=== PATIENT | female | born 1970 | race Caucasian/White ===

== ENCOUNTER 2018-07-04 12:10 | Emergency (ER) | payer MEDICAID, OTHER ==
[~2018-07-04] VITALS: Ht 157.5 cm; Wt 54.0 kg
[~2018-07-04 12:10] MED LIST: ATOR40TA70 PO; CALC-30 PO; ERGO500013 PO; FURO20TA4 PO; HYDR200T35; IRON1TAB PO; LISI40TA4; LOV30 SQ; PRED5TAB PO
[2018-07-04 13:26] LABS: CLARITY URINE CLOUDY (CLEAR); COLOR URINE YELLOW (YELLOW); KETONES URINE NEGATIVE (NEGATIVE); LEUKOCYTE ESTERASE URINE 3+ (NEGATIVE); NITRITE URINE NEGATIVE (NEGATIVE); OCCULT BLOOD URINE 2+ (NEGATIVE); PROTEIN URINE NEGATIVE (NEGATIVE); SPECIFIC GRAVITY URINE 1.004 (1.005-1.030); UROBILINOGEN URINE 0.2 E.U./dL (0.2-1.0)
[2018-07-04] MEDS ORDERED: CEFTRIAXONE SODIUM 1 G/VIAL IM ONE (14:00)
[2018-07-04] MEDS ORDERED: LIDOCAINE HCL 1% 20ML VIAL (Pyxis) INJ INFIL ONE (14:00)
[2018-07-04 14:23] LABS: BASOPHILS % 0.3 % (0.0-2.0); EOSINOPHILS % 1.5 % (0.0-5.0); HEMATOCRIT. 26.3 % (36.0-48.0); HEMOGLOBIN. 8.2 g/dL (12.0-16.0); LYMPHOCYTES % 14.2 % (20.0-50.0); MEAN CORPUSCULAR HEMOGLOBIN 19.7 pg (28.0-32.0); MEAN CORPUSCULAR VOLUME 62.7 fL (81.0-99.0); MEAN PLATELET VOLUME 10.7 fl (7.4-10.4); MONOCYTES % 9.3 % (2.0-8.0); NEUTROPHILS % 74.7 % (40.0-76.0); PLATELET 243 x1000/uL (130-400); RED BLOOD CELL COUNT 4.19 mill/uL (4.2-5.4); RED CELL DISTRIBUTION WIDTH 19.3 % (11.6-14.6)
[2018-07-04 14:31] LABS: CHLORIDE 108 mEq/L (98-107)
[2018-07-04 14:37] LABS: HCG SCREEN INDETERMINATE
[2018-07-04] MEDS ORDERED: LIDOCAINE HCL/PF 1% 10 MG/ML 5ML VIAL IJ NR (14:45)
[2018-07-04] MEDS ORDERED: LIDOCAINE HCL 1% 10 MG/ML 10ML VIAL ONE (14:51)
[2018-07-04 15:48] VITALS: BP 114/70
[2018-07-04 22:01] LABS: PLATELET ESTIMATE NORMAL
[2018-07-08] MEDS ORDERED: CLOP75TA33 MT (10:50)
[2018-07-09] MEDS ORDERED: KEPP500 MT (07:42)
== END 2018-07-04 15:49 | disposition home or self-care (01) ==
LOC: ER 12:54
DX: N30.90 Cystitis, unspecified without hematuria (principal); D50.9 Iron deficiency anemia, unspecified; I10 Essential (primary) hypertension; M32.9 Systemic lupus erythematosus, unspecified; Z86.73 Personal history of transient ischemic attack (TIA), and cerebral infarction without residual deficits; Z98.890 Other specified postprocedural states; Z79.899 Other long term (current) drug therapy
CPT/HCPCS: 36415; 80053; 81003; 83690; 84703; 85025; 87077; 87086; 87186; 96372; 99284; J0696; J3490; Z7610

== ENCOUNTER 2022-06-09 11:02 | Emergency (ER) | payer MEDICAID, OTHER ==
[~2022-06-09] VITALS: Ht 152.4 cm; Wt 64.0 kg
[~2022-06-09 11:02] MED LIST changes: +CALC-1249 PO; -CALC-30 PO; +CLOP75TA33 MT; -FURO20TA4 PO; +KEPP500 MT; +LISI40TA13; -LISI40TA4; -LOV30 SQ; -PRED5TAB PO
[2022-06-09] MEDS ORDERED: HYDRALAZINE 20MG/ML VIAL IV PRN (13:15)
[2022-06-09] MEDS ORDERED: LOSARTAN POTASSIUM 100 MG TABLET PO SCH (13:15)
[2022-06-09] MEDS ORDERED: FUROSEMIDE 40MG/4ML VIAL IVP NR (13:15)
[2022-06-09 15:24] LABS: CLARITY URINE CLEAR (CLEAR); COLOR URINE YELLOW (YELLOW); KETONES URINE NEGATIVE (NEGATIVE); LEUKOCYTE ESTERASE URINE NEGATIVE (NEGATIVE); NITRITE URINE NEGATIVE (NEGATIVE); OCCULT BLOOD URINE 2+ (NEGATIVE); PROTEIN URINE 3+ (NEGATIVE); SPECIFIC GRAVITY URINE 1.011 (1.005-1.030); UROBILINOGEN URINE 0.2 E.U./dL (0.2-1.0)
[2022-06-09 19:11] LABS: BASOPHILS % 0.4 % (0.0-2.0); EOSINOPHILS % 0.8 % (0.0-5.0); HEMATOCRIT. 35.2 % (36.0-48.0); HEMOGLOBIN. 11.3 g/dL (12.0-16.0); LYMPHOCYTES % 19.8 % (20.0-50.0); MEAN CORPUSCULAR HEMOGLOBIN 28.1 pg (28.0-32.0); MEAN CORPUSCULAR VOLUME 87.7 fL (81.0-99.0); MONOCYTES % 8.2 % (2.0-8.0); NEUTROPHILS % 70.8 % (40.0-76.0); PLATELET 167 x1000/uL (130-400); RED BLOOD CELL COUNT 4.01 mill/uL (4.2-5.4); RED CELL DISTRIBUTION WIDTH 13.3 % (11.6-14.6)
[2022-06-09 19:20] LABS: CHLORIDE 115 mEq/L (98-107)
[2022-06-09 21:22] VITALS: BP 169/73
== END 2022-06-09 21:20 | disposition home or self-care (01) ==
LOC: ER 11:02
DX: I10 Essential (primary) hypertension (principal); Z86.73 Personal history of transient ischemic attack (TIA), and cerebral infarction without residual deficits; Z86.59 Personal history of other mental and behavioral disorders
CPT/HCPCS: 36415; 71045; 80053; 81003; 83880; 84484; 85025; 93005; 96374; 99285; J0360; J1940

== ENCOUNTER 2023-08-06 15:13 | Inpatient (IN) | payer MEDICAID, OTHER ==
[~2023-08-06] VITALS: Ht 152.4 cm; Wt 52.6 kg
[2023-08-06] MEDS ORDERED: IBUPROFEN 600MG TABLET PO STA (17:37)
[2023-08-06] MEDS ORDERED: CEFTRIAXONE 1GM PREMIX 50 ML IV ONE (17:45)
[2023-08-06] MEDS ORDERED: VANCOMYCIN 1G PREMIX 200 ML IV ONE (17:45)
[2023-08-06] MEDS ORDERED: SODIUM CHLORIDE 0.9% 1,000 ML IV ONE (17:45)
[2023-08-06 19:33] LABS: BASOPHILS % 0.1 % (0.0-2.0); EOSINOPHILS % 0.1 % (0.0-5.0); HEMATOCRIT. 25.2 % (36.0-48.0); HEMOGLOBIN. 7.5 g/dL (12.0-16.0); LYMPHOCYTES % 10.1 % (20.0-50.0); MEAN CORPUSCULAR HEMOGLOBIN 27.7 pg (28.0-32.0); MEAN CORPUSCULAR HGB CONC 29.7 g/dL (31.0-37.0); MEAN CORPUSCULAR VOLUME 93.3 fL (81.0-99.0); MEAN PLATELET VOLUME 8.2 fl (7.4-10.4); MONOCYTES % 6.3 % (2.0-8.0); NEUTROPHILS % 83.4 % (40.0-76.0); PLATELET 301 x1000/uL (130-400); RED CELL DISTRIBUTION WIDTH 20.4 % (11.6-14.6); WHITE BLOOD COUNT 4.9 x1000/uL (4.5-11.0)
[2023-08-06 19:44] LABS: CHLORIDE 103 mEq/L (98-107); INDEX HEMOLYSI 1 (1-3); INDEX ICTERIC 1 (1-4); INDEX LIPEMIC 1 (1-3); POTASSIUM 4.3 mEq/L (3.5-5.1); SODIUM 139 mEq/L (136-145)
[2023-08-06 19:51] LABS: ALANINE AMINOTRANSFERASE 13 IU/L (13-61); ALBUMIN 2.6 g/dL (3.4-5.0); ASPARTATE AMINOTRANSFERASE 24 IU/L (15-37); BILIRUBIN TOTAL 0.3 mg/dL (0.1-1.0); CALCIUM 8.6 mg/dL (8.5-10.1); CARBON DIOXIDE 28 mEq/L (21-32); GLUCOSE 108 mg/dL (70-105); PROTEIN TOTAL 7.1 g/dL (6.0-8.3); UREA NITROGEN BLOOD 42 mg/dL (7-21)
[2023-08-06] MEDS ORDERED: IBUPROFEN 600MG TABLET PO NR (23:00)
[2023-08-06] MEDS ORDERED: VANCOMYCIN 1G PREMIX 200 ML IV NR (23:00)
[2023-08-06] MEDS ORDERED: CEFTRIAXONE 1GM PREMIX 50 ML IV NR (23:00)
[2023-08-07 01:59] VITALS: BP 148/63; PULSE 69; RESP 18; TEMP 98.6
[2023-08-07 04:34] VITALS: BP 148/63; PULSE 19; RESP 18; TEMP 98.6
[2023-08-07] MEDS ORDERED: SEVE800T8 MT (05:09)
[2023-08-07] MEDS ORDERED: NIFE-33 MT (05:09)
[2023-08-07] MEDS ORDERED: PANT40TA51 MT (05:09)
[2023-08-07] MEDS ORDERED: CETI10TA11 PO (05:09)
[2023-08-07] MEDS ORDERED: PRED10TA23 PO (05:09)
[2023-08-07] MEDS ORDERED: ATOR10TA69 PO (05:09)
[2023-08-07] MEDS ORDERED: LEVE10006 PO (05:09)
[2023-08-07] MEDS ORDERED: AMIT10TA6 PO (05:09)
[2023-08-07] MEDS ORDERED: METO-385 PO (05:09)
[2023-08-07] MEDS ORDERED: DOXA1TAB2 MT (05:09)
[2023-08-07] MEDS ORDERED: HYDROCODONE/ACETAMINOPHEN 5/325MG TABLET PO PRN (06:30)
[2023-08-07] MEDS ORDERED: NALOXONE HCL 0.4MG/ML VIAL IV PRN (07:00)
[2023-08-07 08:00] VITALS: BP 145/52; PULSE 72; RESP 20; TEMP 98.2
[2023-08-07 12:00] VITALS: BP 139/40; PULSE 65; RESP 20; TEMP 97.6
[2023-08-07] MEDS ORDERED: FERR325T6 PO (14:57)
[2023-08-07 16:00] VITALS: BP 154/63; PULSE 69; RESP 20; TEMP 97.8
[2023-08-07] MEDS: FERROUS SULFATE 325MG TABLET PO SCH (16:58)
[2023-08-07] MEDS: NIFEDIPINE XL 30MG TAB PO SCH (17:00)
[2023-08-07] MEDS: SEVELAMER CARBONATE 800 MG TABLET PO SCH (17:29)
[2023-08-07] MEDS ORDERED: INFLUENZA VACCINE 05/PF 0.5 ML SYRINGE IM ONE (18:00)
[2023-08-07 20:00] VITALS: BP 150/62; PULSE 66; RESP 18; TEMP 96.6
[2023-08-07] MEDS ORDERED: EPOETIN ALFA 10000UNITS/ML VIAL SUBCUT SCH (21:00)
[2023-08-07] MEDS ORDERED: EPOETIN ALFA 4000UNITS/ML VIAL SUBCUT SCH (21:00)
[2023-08-07] MEDS: LEVETIRACETAM 500MG TABLET PO SCH (21:19)
[2023-08-07] MEDS: CEFTRIAXONE 1,000 MG in DEXTROSE 5% WATER 50 ML IV SCH (21:19)
[2023-08-07] MEDS: ATORVASTATIN CALCIUM 10MG TABLET PO SCH (21:20)
[2023-08-07] MEDS: DOXAZOSIN MESYLATE 2MG TABLET PO SCH (21:21)
[2023-08-07] MEDS: AMITRIPTYLINE 10MG TABLET PO SCH (21:21)
[2023-08-08] VITALS (15 sets, daily range): BP systolic 122–174; BP diastolic 46–83; PULSE 69–93; RESP 16–20; TEMP 96.9–98.6
[2023-08-08 05:48] LABS: ALBUMIN 2.2 g/dL (3.4-5.0); POTASSIUM 4.1 mEq/L (3.5-5.1)
[2023-08-08] MEDS: LEVETIRACETAM 500MG TABLET PO SCH ×2 (08:57→21:07)
[2023-08-08] MEDS: PREDNISONE 10MG TABLET PO SCH (08:57)
[2023-08-08] MEDS: FERROUS SULFATE 325MG TABLET PO SCH (08:57)
[2023-08-08] MEDS: PANTOPRAZOLE 40MG DR TABLET PO SCH (08:57)
[2023-08-08] MEDS: SEVELAMER CARBONATE 800 MG TABLET PO SCH ×3 (08:57→17:51)
[2023-08-08] MEDS: CETIRIZINE 10MG TABLET PO SCH (08:58)
[2023-08-08] MEDS ORDERED: CLOPIDOGREL 75MG TABLET PO SCH (09:00)
[2023-08-08 10:55] LABS: PREALBUMIN 24.3 mg/dL (20.0-40.0)
[2023-08-08] MEDS: NIFEDIPINE XL 30MG TAB PO SCH ×2 (13:05→17:52)
[2023-08-08] MEDS: METOPROLOL SUCCINATE 50MG ER TABLET PO SCH (13:05)
[2023-08-08] MEDS ORDERED: LIDOCAINE HCL 4% (40MG/ML) SOLN 50ML TOP NR (16:30)
[2023-08-08] MEDS ORDERED: SILVER NITRATE APPLICATOR STICK TOP NR (16:33)
[2023-08-08 19:04] LABS: HEPATITIS B CORE AB IGM NEGATIVE; HEPATITIS C VIR.AB 0.08 INDEXVAL (0.00-0.80)
[2023-08-08 19:28] LABS: HEPATITIS B SURFACE ANTIGEN NEGATIVE
[2023-08-08 19:58] LABS: HEPATITIS A AB IGM NEGATIVE (NEGATIVE)
[2023-08-08] MEDS: AMITRIPTYLINE 10MG TABLET PO SCH (21:07)
[2023-08-08] MEDS: ATORVASTATIN CALCIUM 10MG TABLET PO SCH (21:07)
[2023-08-08] MEDS: DOXAZOSIN MESYLATE 2MG TABLET PO SCH (21:08)
[2023-08-08] MEDS: CEFTRIAXONE 1,000 MG in DEXTROSE 5% WATER 50 ML IV SCH (21:09)
[2023-08-09] VITALS (11 sets, daily range): BP systolic 94–144; BP diastolic 44–65; PULSE 65–82; RESP 16–20; TEMP 97.1–99.5
[2023-08-09 04:26] LABS: HEMATOCRIT. 22.7 % (36.0-48.0); MEAN CORPUSCULAR HEMOGLOBIN 27.7 pg (28.0-32.0); MEAN CORPUSCULAR HGB CONC 30.6 g/dL (31.0-37.0); MEAN CORPUSCULAR VOLUME 90.5 fL (81.0-99.0); MEAN PLATELET VOLUME 7.7 fl (7.4-10.4); PLATELET 161 x1000/uL (130-400); RED CELL DISTRIBUTION WIDTH 20.1 % (11.6-14.6); WHITE BLOOD COUNT 3.2 x1000/uL (4.5-11.0)
[2023-08-09 04:31] LABS: POTASSIUM 3.7 mEq/L (3.5-5.1)
[2023-08-09 04:41] LABS: CREATININE 3.6 mg/dL (0.6-1.3)
[2023-08-09 06:35] LABS: DIFFERENTIAL COMMENT 1; HEMOGLOBIN. 6.9 g/dL (12.0-16.0)
[2023-08-09] MEDS: CETIRIZINE 10MG TABLET PO SCH (08:19)
[2023-08-09] MEDS: PREDNISONE 10MG TABLET PO SCH (08:19)
[2023-08-09] MEDS: PANTOPRAZOLE 40MG DR TABLET PO SCH (08:19)
[2023-08-09] MEDS: LEVETIRACETAM 500MG TABLET PO SCH ×2 (08:19→21:11)
[2023-08-09] MEDS: SEVELAMER CARBONATE 800 MG TABLET PO SCH ×3 (08:19→17:23)
[2023-08-09] MEDS: METOPROLOL SUCCINATE 50MG ER TABLET PO SCH (08:19)
[2023-08-09] MEDS: FERROUS SULFATE 325MG TABLET PO SCH (08:19)
[2023-08-09] MEDS: NIFEDIPINE XL 30MG TAB PO SCH ×2 (08:19→17:22)
[2023-08-09 09:57] LABS: ANISOCYTOSIS 2+; PLATELET ESTIMATE NORMAL
[2023-08-09] MEDS ORDERED: MORPHINE SULFATE 2 MG/ML CPJ (NOT FOR IM USE) IV NR (10:00)
[2023-08-09 18:04] LABS: HEMATOCRIT 30.1 % (36.0-48.0); HEMOGLOBIN 9.2 g/dL (12.0-16.0)
[2023-08-09] MEDS: AMITRIPTYLINE 10MG TABLET PO SCH (21:11)
[2023-08-09] MEDS: DOXAZOSIN MESYLATE 2MG TABLET PO SCH (21:11)
[2023-08-09] MEDS: ATORVASTATIN CALCIUM 10MG TABLET PO SCH (21:11)
[2023-08-09] MEDS: CEFTRIAXONE 1,000 MG in DEXTROSE 5% WATER 50 ML IV SCH (22:56)
[2023-08-10] VITALS (13 sets, daily range): BP systolic 140–169; BP diastolic 60–86; PULSE 58–94; RESP 16–18; TEMP 96.9–99.5; O2SAT 98
[2023-08-10] MEDS: PANTOPRAZOLE 40MG DR TABLET PO SCH (06:34)
[2023-08-10 07:26] LABS: POTASSIUM 3.8 mEq/L (3.5-5.1)
[2023-08-10 07:32] LABS: BASOPHILS % 0.3 % (0.0-2.0); EOSINOPHILS % 1.8 % (0.0-5.0); HEMATOCRIT. 28.4 % (36.0-48.0); LYMPHOCYTES % 18.2 % (20.0-50.0); MEAN CORPUSCULAR HEMOGLOBIN 28.4 pg (28.0-32.0); MEAN CORPUSCULAR HGB CONC 31.9 g/dL (31.0-37.0); MEAN CORPUSCULAR VOLUME 89.1 fL (81.0-99.0); MEAN PLATELET VOLUME 8.2 fl (7.4-10.4); MONOCYTES % 11.4 % (2.0-8.0); NEUTROPHILS % 68.3 % (40.0-76.0); PLATELET 137 x1000/uL (130-400); RED BLOOD CELL COUNT 3.19 mill/uL (4.2-5.4); RED CELL DISTRIBUTION WIDTH 18.6 % (11.6-14.6); WHITE BLOOD COUNT 4.7 x1000/uL (4.5-11.0)
[2023-08-10 07:33] LABS: CALCIUM 8.2 mg/dL (8.5-10.1)
[2023-08-10] MEDS: LEVETIRACETAM 500MG TABLET PO SCH (08:15)
[2023-08-10] MEDS: FERROUS SULFATE 325MG TABLET PO SCH (08:57)
[2023-08-10] MEDS: PREDNISONE 10MG TABLET PO SCH (08:57)
[2023-08-10] MEDS: SEVELAMER CARBONATE 800 MG TABLET PO SCH ×2 (08:57→13:20)
[2023-08-10] MEDS: CETIRIZINE 10MG TABLET PO SCH (08:57)
[2023-08-10] MEDS: NIFEDIPINE XL 30MG TAB PO SCH (09:00)
[2023-08-10] MEDS: METOPROLOL SUCCINATE 50MG ER TABLET PO SCH (09:00)
[2023-08-10] MEDS ORDERED: AMOX1TAB15 PO (17:11)
== END 2023-08-10 19:00 | disposition home health service (06) | DRG 383 ==
LOC: ER 15:13 → MICUSO 22:20 → EDBEDREQSVC 22:29 → EDBEDREQ 22:29 → EDBEDREQTM 22:29 → 7WST 08-07 01:42 → 6EST 08-09 22:06
PROVIDERS: ADMIT Internal Medicine; ATTEND Internal Medicine
PROC: 5A1D70Z Performance of Urinary Filtration, Intermittent, Less than 6 Hours Per Day (ICD-10-PCS; 2023-08-08)
PROC: 0JBN0ZZ Excision of Right Lower Leg Subcutaneous Tissue and Fascia, Open Approach (ICD-10-PCS; principal; 2023-08-09)
PROC: 5A1D70Z Performance of Urinary Filtration, Intermittent, Less than 6 Hours Per Day (ICD-10-PCS; 2023-08-09)
PROC: 30233N1 Transfusion of Nonautologous Red Blood Cells into Peripheral Vein, Percutaneous Approach (ICD-10-PCS; 2023-08-09)
PROC: 0JB70ZZ Excision of Back Subcutaneous Tissue and Fascia, Open Approach (ICD-10-PCS; 2023-08-09)
DX: L03.115 Cellulitis of right lower limb (principal); E43 Unspecified severe protein-calorie malnutrition; L89.153 Pressure ulcer of sacral region, stage 3; I12.0 Hypertensive chronic kidney disease with stage 5 chronic kidney disease or end stage renal disease; I96 Gangrene, not elsewhere classified; D63.1 Anemia in chronic kidney disease; L97.812 Non-pressure chronic ulcer of other part of right lower leg with fat layer exposed; M32.9 Systemic lupus erythematosus, unspecified; N18.6 End stage renal disease; J44.9 Chronic obstructive pulmonary disease, unspecified; S80.11XA Contusion of right lower leg, initial encounter; Z86.73 Personal history of transient ischemic attack (TIA), and cerebral infarction without residual deficits; Z90.49 Acquired absence of other specified parts of digestive tract; Z99.2 Dependence on renal dialysis; Z68.22 Body mass index [BMI] 22.0-22.9, adult; W18.39XA Other fall on same level, initial encounter; Y93.89 Activity, other specified; Y92.098 Other place in other non-institutional residence as the place of occurrence of the external cause; Y99.8 Other external cause status
CPT/HCPCS: 36415; 71045; 73590; 73600; 80048; 80051; 80053; 80202; 82040; 84134; 84145; 85014; 85018; 85025; 86705; 86709; 86803; 86850; 86900; 86920; 87340; 90686; 90935; 99285; A6261; J0696; J0885; J2270; J3370; J7030; J7060; J7512; P9016